=== PATIENT | female | born 1950 | race African-American/Black ===

== ENCOUNTER 2016-09-26 22:30 | Emergency (ER) | payer OTHER ==
[~2016-09-26] VITALS: Ht 165.1 cm; Wt 64.0 kg
[~2016-09-26 22:30] MED LIST: AMLO10TA80 PO; ATOR40TA70 PO; CLOP75TA2 PO; GLIP5TAB12 PO; METF10002 PO; METO25TA6 PO; TOLT4CAP PO
[2016-09-27 01:27] LABS: BASOPHILS % 1.3 % (0.0-2.0); EOSINOPHILS % 2.6 % (0.0-5.0); HEMATOCRIT. 31.5 % (36.0-48.0); HEMOGLOBIN. 10.4 g/dL (12.0-16.0); LYMPHOCYTES % 29.7 % (20.0-50.0); MEAN CORPUSCULAR HEMOGLOBIN 29.4 pg (28.0-32.0); MEAN CORPUSCULAR HGB CONC 32.9 g/dL (31.0-37.0); MEAN CORPUSCULAR VOLUME 89.3 fL (81.0-99.0); MEAN PLATELET VOLUME 9.6 fl (7.4-10.4); MONOCYTES % 9.1 % (2.0-8.0); NEUTROPHILS % 57.3 % (40.0-76.0); PLATELET 241 x1000/uL (130-400); RED BLOOD CELL COUNT 3.53 mill/uL (4.2-5.4); RED CELL DISTRIBUTION WIDTH 13.8 % (11.6-14.6); WHITE BLOOD COUNT 6.3 x1000/uL (4.5-11.0)
[2016-09-27 01:34] LABS: CHLORIDE 108 mEq/L (98-107); INDEX HEMOLYSI 1 (1-3); INDEX ICTERIC 1 (1-4); INDEX LIPEMIC 1 (1-3)
[2016-09-27 01:54] LABS: ACETAMINOPHEN < 2 ug/mL (10-30); ALANINE AMINOTRANSFERASE 13 IU/L (13-61); ALBUMIN 3.5 g/dL (3.4-5.0); ANION GAP 11; CALCIUM 8.7 mg/dL (8.5-10.1); CARBON DIOXIDE 27 mEq/L (21-32); ETHANOL BLOOD < 10 mg/dL; UREA NITROGEN BLOOD 36 mg/dL (7-21); eGFR 50 mL/min (>60)
[2016-09-27] MEDS ORDERED: SODIUM CHLORIDE 0.9% 1,000 ML IV ONE (02:00)
[2016-09-27 09:55] LABS: CLARITY URINE CLEAR (CLEAR); COLOR URINE YELLOW (YELLOW); GLUCOSE URINE NEGATIVE (NEGATIVE); KETONES URINE TRACE (NEGATIVE); LEUKOCYTE ESTERASE URINE NEGATIVE (NEGATIVE); NITRITE URINE NEGATIVE (NEGATIVE); OCCULT BLOOD URINE NEGATIVE (NEGATIVE); PROTEIN URINE 1+ (NEGATIVE); SPECIFIC GRAVITY URINE 1.018 (1.005-1.030)
[2016-09-27 10:12] LABS: BACTERIA URINE NONE SEEN; RBC URINE NONE SEEN /hpf (0-2); SQUAMOUS EPITHELIAL CELL URINE FEW /lpf (RARE/1+); WBC URINE 0-2 /hpf (0-2)
[2016-09-27 10:14] LABS: *AMPHETAMINES SCREEN URINE NEGATIVE (NEGATIVE); *BARBITURATES SCREEN URINE NEGATIVE (NEGATIVE); *BENZODIAZEPINES SCREEN URINE PRESUMTIVE POSITIVE (NEGATIVE); *COCAINE SCREEN URINE NEGATIVE (NEGATIVE); CANNABINOID URINE SCREEN NEGATIVE (NEGATIVE); ECSTASY MDMA SCREEN URINE NEGATIVE (NEGATIVE); METHADONE URINE SCREEN NEGATIVE (NEGATIVE); OPIATES URINE SCREEN PRESUMTIVE POSITIVE (NEGATIVE); PHENCYCLIDINE URINE SCREEN NEGATIVE (NEGATIVE)
[2016-09-27] MEDS ORDERED: LORAZEPAM 2MG/ML CPJ IV ONE (14:30)
[2016-09-27] MEDS ORDERED: LORAZEPAM 2MG/ML CPJ ONE (14:32)
[2016-09-28] MEDS ORDERED: LORAZEPAM 2MG/ML CPJ IV PRN (09:30)
[2016-09-28 12:30] VITALS: BP 151/103
== END 2016-09-28 16:10 | disposition home or self-care (01) ==
LOC: ER 22:30
DX: G30.9 Alzheimer's disease, unspecified (principal); F02.80 Dementia in other diseases classified elsewhere, unspecified severity, without behavioral disturbance, psychotic disturbance, mood disturbance, and anxiety; I10 Essential (primary) hypertension; E11.9 Type 2 diabetes mellitus without complications; F11.10 Opioid abuse, uncomplicated; F13.10 Sedative, hypnotic or anxiolytic abuse, uncomplicated; Z98.84 Bariatric surgery status; Z79.899 Other long term (current) drug therapy
CPT/HCPCS: 36415; 70450; 80053; 80305; 80307; 80329; 81001; 84443; 85025; 96361; 96374; 96376; 99285; G0482; J2060; J7030; Z7610

== ENCOUNTER 2017-04-01 19:28 | Inpatient (IN) | payer MEDICAID, OTHER ==
[~2017-04-01] VITALS: Ht 160 cm; Wt 55.3 kg
[~2017-04-01 19:28] MED LIST changes: +ALPR1TAB2 PO; +CLOP75TA16 PO; -CLOP75TA2 PO; +DONE5TAB33 PO
[2017-04-01 21:54] LABS: BASOPHILS % 0.9 % (0.0-2.0); EOSINOPHILS % 1.8 % (0.0-5.0); HEMOGLOBIN. 9.4 g/dL (12.0-16.0); LYMPHOCYTES % 35.9 % (20.0-50.0); MEAN CORPUSCULAR VOLUME 83.4 fL (81.0-99.0); MEAN PLATELET VOLUME 9.4 fl (7.4-10.4); MONOCYTES % 10.1 % (2.0-8.0); NEUTROPHILS % 51.3 % (40.0-76.0); PLATELET 179 x1000/uL (130-400); RED BLOOD CELL COUNT 3.36 mill/uL (4.2-5.4); RED CELL DISTRIBUTION WIDTH 15.7 % (11.6-14.6)
[2017-04-02] MEDS ORDERED: DOCUSATE SODIUM 100MG CAPSULE PO PRN (09:30)
[2017-04-02] MEDS ORDERED: ONDANSETRON HCL 4MG/2ML VIAL IV PRN (09:30)
[2017-04-02] MEDS ORDERED: CLONIDINE 0.1MG TABLET PO PRN (09:30)
[2017-04-02] MEDS ORDERED: DEXTROSE 50% WATER 50ML SYRINGE IV PRN (11:00)
[2017-04-02 11:31] VITALS: BP 137/74
[2017-04-02] MEDS ORDERED: POTASSIUM CHLORIDE 20MEQ TABLET SR PO NR (11:45)
[2017-04-02] MEDS: BLOOD SUGAR DIAGNOSTIC STRIP TEST SCH ×3 (12:10→21:00)
[2017-04-02] MEDS: MULTIVITAMINS,THER W-MINERALS TABLET PO SCH (12:47)
[2017-04-02] MEDS: INSULIN LISPRO 100 UNITS/ML SUBCUT SCH ×3 (13:28→21:00)
[2017-04-02] MEDS: ALPRAZOLAM 0.5 MG TABLET PO SCH (14:36)
[2017-04-02] MEDS: DEXT 5%/0.45% NACL 1000ML 1,000 ML IV SCH (16:46)
[2017-04-02 20:00] VITALS: BP 122/79
[2017-04-02] MEDS: ACETAMINOPHEN 325MG TABLET PO PRN (20:01)
[2017-04-02] MEDS: LORAZEPAM 2MG/ML CPJ IV PRN (20:08)
[2017-04-03] MEDS: ALPRAZOLAM 0.5 MG TABLET PO SCH ×4 (02:00→13:24)
[2017-04-03 04:00] VITALS: BP 117/65
[2017-04-03] MEDS: DEXT 5%/0.45% NACL 1000ML 1,000 ML IV SCH (07:04)
[2017-04-03] MEDS: ACETAMINOPHEN 325MG TABLET PO PRN (07:07)
[2017-04-03] MEDS: BLOOD SUGAR DIAGNOSTIC STRIP TEST SCH ×2 (07:07→11:37)
[2017-04-03] MEDS: INSULIN LISPRO 100 UNITS/ML SUBCUT SCH ×2 (07:08→13:28)
[2017-04-03 07:38] LABS: EOSINOPHILS % 3.4 % (0.0-5.0); HEMATOCRIT. 26.3 % (36.0-48.0); HEMOGLOBIN. 8.8 g/dL (12.0-16.0); LYMPHOCYTES % 36.9 % (20.0-50.0); MEAN CORPUSCULAR HEMOGLOBIN 28.4 pg (28.0-32.0); MEAN CORPUSCULAR VOLUME 84.3 fL (81.0-99.0); MEAN PLATELET VOLUME 9.3 fl (7.4-10.4); MONOCYTES % 11.6 % (2.0-8.0); NEUTROPHILS % 47.1 % (40.0-76.0); PLATELET 195 x1000/uL (130-400); RED BLOOD CELL COUNT 3.12 mill/uL (4.2-5.4)
[2017-04-03 08:00] VITALS: BP 106/72
[2017-04-03] MEDS: MULTIVITAMINS,THER W-MINERALS TABLET PO SCH (08:55)
[2017-04-03] MEDS: LORAZEPAM 2MG/ML CPJ IV PRN (08:56)
[2017-04-03] MEDS ORDERED: AMLODIPINE 10MG TABLET PO SCH (09:00)
[2017-04-03] MEDS ORDERED: ASPIRIN 81MG EC TABLET PO SCH (09:00)
[2017-04-03] MEDS ORDERED: FOLIC ACID 1MG TABLET PO SCH (09:00)
[2017-04-03 09:12] LABS: CARBON DIOXIDE 25 mEq/L (21-32); CHLORIDE 101 mEq/L (98-107)
[2017-04-03 12:00] VITALS: BP 117/79
[2017-04-03 15:39] VITALS: BP 117/79
== END 2017-04-03 16:40 | disposition home or self-care (01) | DRG 52 ==
LOC: ER 19:30 → 8WST 04-02 01:13 → CANRESERV 04-02 07:07 → ENRESERV 04-02 07:07
PROVIDERS: ADMIT Hospitalist; ATTEND Hospitalist
DX: G92 Toxic encephalopathy (principal); E43 Unspecified severe protein-calorie malnutrition; N17.9 Acute kidney failure, unspecified; F03.90 Unspecified dementia, unspecified severity, without behavioral disturbance, psychotic disturbance, mood disturbance, and anxiety; E11.9 Type 2 diabetes mellitus without complications; I25.10 Atherosclerotic heart disease of native coronary artery without angina pectoris; E87.6 Hypokalemia; E87.1 Hypo-osmolality and hyponatremia; Z98.84 Bariatric surgery status; Z79.84 Long term (current) use of oral hypoglycemic drugs; Z79.899 Other long term (current) drug therapy; Z72.89 Other problems related to lifestyle
CPT/HCPCS: 36415; 71010; 80048; 80053; 82962; 84443; 84484; 85025; 87040; 87086; 93970; 99285; J1815; J2060

== ENCOUNTER 2017-05-07 08:22 | Inpatient (IN) | payer MEDICAID, OTHER ==
[~2017-05-07] VITALS: Ht 157.5 cm; Wt 66.7 kg
[2017-05-07 09:24] LABS: BASOPHILS % 0.2 % (0.0-2.0); HEMATOCRIT. 30.3 % (36.0-48.0); HEMOGLOBIN. 10.2 g/dL (12.0-16.0); LYMPHOCYTES % 15.9 % (20.0-50.0); MEAN CORPUSCULAR HEMOGLOBIN 27.9 pg (28.0-32.0); MEAN CORPUSCULAR VOLUME 83.1 fL (81.0-99.0); MEAN PLATELET VOLUME 8.9 fl (7.4-10.4); NEUTROPHILS % 77.9 % (40.0-76.0); PLATELET 339 x1000/uL (130-400); RED BLOOD CELL COUNT 3.65 mill/uL (4.2-5.4); RED CELL DISTRIBUTION WIDTH 15.1 % (11.6-14.6)
[2017-05-07 09:30] LABS: CARBON DIOXIDE 26 mEq/L (21-32); CHLORIDE 79 mEq/L (98-107); ETHANOL BLOOD < 10 mg/dL
[2017-05-07] MEDS ORDERED: SODIUM CHLORIDE 0.9% 1,000 ML IV ONE (10:00)
[2017-05-07] MEDS ORDERED: SODIUM CHLORIDE 0.9% 250 ML IV ONE (10:00)
[2017-05-07 11:09] LABS: *AMPHETAMINES SCREEN URINE NEGATIVE (NEGATIVE); *BARBITURATES SCREEN URINE NEGATIVE (NEGATIVE); *BENZODIAZEPINES SCREEN URINE PRESUMTIVE POSITIVE (NEGATIVE); *COCAINE SCREEN URINE NEGATIVE (NEGATIVE); CANNABINOID URINE SCREEN NEGATIVE (NEGATIVE); METHADONE URINE SCREEN NEGATIVE (NEGATIVE); OPIATES URINE SCREEN NEGATIVE (NEGATIVE); PHENCYCLIDINE URINE SCREEN NEGATIVE (NEGATIVE)
[2017-05-07 14:40] VITALS: BP 165/86
[2017-05-07 15:30] VITALS: BP 165/86
[2017-05-07] MEDS ORDERED: ONDANSETRON HCL 4MG/2ML VIAL IV PRN (15:30)
[2017-05-07] MEDS ORDERED: GUAIFENESIN 200MG/10ML SUGAR FREE UDC PO PRN (15:30)
[2017-05-07] MEDS ORDERED: IPRATROPIUM/ALBUTEROL 0.5-3(2.5)MG/3ML NEB INH PRN (15:30)
[2017-05-07] MEDS ORDERED: ACETAMINOPHEN 325MG TABLET PO PRN (15:30)
[2017-05-07] MEDS ORDERED: NITROGLYCERIN 0.4MG TABLET SL SL PRN (15:30)
[2017-05-07] MEDS ORDERED: DOCUSATE SODIUM 100MG CAPSULE PO PRN (15:30)
[2017-05-07] MEDS ORDERED: MAGNESIUM/ALUMINUM HYDROXIDE/SIMETHICONE 30ML UDC PO PRN (15:30)
[2017-05-07] MEDS: FAMOTIDINE 20MG TABLET PO SCH (16:00)
[2017-05-07] MEDS ORDERED: NA PHOS,M-B/NA PHOS,DI-BA ENEMA 118ML PR PRN (16:00)
[2017-05-07] MEDS ORDERED: TRAMADOL 50MG TABLET PO PRN (16:00)
[2017-05-07 16:01] LABS: T4 FREE 1.48 ng/dL (0.76-1.46)
[2017-05-07] MEDS ORDERED: NIFE-1 PO (16:08)
[2017-05-07] MEDS ORDERED: HYDR-523 PO (16:08)
[2017-05-07] MEDS ORDERED: ASPI-1159 PO (16:08)
[2017-05-07] MEDS: SODIUM CHLORIDE 0.9% 1,000 ML IV SCH ×2 (16:39→23:06)
[2017-05-07] MEDS: ENOXAPARIN 40MG/0.4ML SYR SUBCUT SCH (16:44)
[2017-05-07 17:23] LABS: CHLORIDE 82 mEq/L (98-107)
[2017-05-07 17:32] LABS: CARBON DIOXIDE 25 mEq/L (21-32)
[2017-05-07] MEDS ORDERED: DEXTROSE 50% WATER 50ML SYRINGE IV PRN (18:45)
[2017-05-07] MEDS ORDERED: POTASSIUM CHLORIDE 20MEQ/PACKET PO NR (18:45)
[2017-05-07 20:00] VITALS: BP 172/80
[2017-05-07] MEDS: ASCORBIC ACID 500 MG TABLET PO SCH (21:00)
[2017-05-07] MEDS: ATORVASTATIN CALCIUM 20MG TABLET PO SCH ×2 (21:00→23:07)
[2017-05-07] MEDS: BLOOD SUGAR DIAGNOSTIC STRIP TEST SCH (22:00)
[2017-05-07 23:00] LABS: CREATINE KINASE 579 IU/L (26-192); CREATINE KINASE MB FRACTION 4.4 ng/mL (0.5-3.6); TROPONIN I < 0.02 ng/mL (0.00-0.04)
[2017-05-07] MEDS: INSULIN LISPRO 100 UNITS/ML SUBCUT SCH (23:05)
[2017-05-08] VITALS: BP 129/79
[2017-05-08 04:00] VITALS: BP 142/77
[2017-05-08 07:10] LABS: CHLORIDE 82 mEq/L (98-107)
[2017-05-08 07:21] LABS: CARBON DIOXIDE 22 mEq/L (21-32); CREATINE KINASE 553 IU/L (26-192); CREATINE KINASE MB FRACTION 3.8 ng/mL (0.5-3.6); TROPONIN I < 0.02 ng/mL (0.00-0.04)
[2017-05-08] MEDS: INSULIN LISPRO 100 UNITS/ML SUBCUT SCH ×4 (07:50→23:17)
[2017-05-08] MEDS ORDERED: PANTOPRAZOLE SODIUM 40 MG/VIAL IV SCH (09:00)
[2017-05-08] MEDS: POTASSIUM CHLORIDE 20MEQ TABLET SR PO SCH (09:00)
[2017-05-08] MEDS: ASCORBIC ACID 500 MG TABLET PO SCH ×2 (09:00→23:00)
[2017-05-08] MEDS: FAMOTIDINE 20MG TABLET PO SCH (09:00)
[2017-05-08] MEDS: ASPIRIN 325MG EC TABLET PO SCH (09:00)
[2017-05-08] MEDS ORDERED: KCL 20MEQ/100ML PREMIX 100 ML IV NR (11:00)
[2017-05-08] MEDS: SODIUM CHLORIDE 0.9% 1,000 ML IV SCH ×2 (11:17→17:21)
[2017-05-08] MEDS: BLOOD SUGAR DIAGNOSTIC STRIP TEST SCH ×3 (11:46→21:00)
[2017-05-08 12:00] VITALS: BP 171/86
[2017-05-08] MEDS: CLONIDINE 0.1MG TABLET PO PRN ×2 (12:24→23:00)
[2017-05-08 13:35] VITALS: BP 158/78
[2017-05-08] MEDS: SODIUM CHLORIDE 1000MG TABLET PO SCH ×2 (13:37→17:28)
[2017-05-08 16:00] VITALS: BP 143/79
[2017-05-08] MEDS: ENOXAPARIN 40MG/0.4ML SYR SUBCUT SCH (17:28)
[2017-05-08 20:00] VITALS: BP 166/93
[2017-05-08] MEDS: ATORVASTATIN CALCIUM 20MG TABLET PO SCH (23:00)
[2017-05-09] MEDS: ZOLPIDEM TARTRATE 5MG TABLET PO PRN ×2 (01:15→21:46)
[2017-05-09] MEDS: SODIUM CHLORIDE 0.9% 1,000 ML IV SCH ×3 (01:21→17:21)
[2017-05-09] MEDS: BLOOD SUGAR DIAGNOSTIC STRIP TEST SCH ×4 (07:20→20:19)
[2017-05-09] MEDS: INSULIN LISPRO 100 UNITS/ML SUBCUT SCH ×4 (07:50→21:46)
[2017-05-09 08:00] VITALS: BP 155/80
[2017-05-09] MEDS: POTASSIUM CHLORIDE 20MEQ TABLET SR PO SCH (09:49)
[2017-05-09] MEDS: ASCORBIC ACID 500 MG TABLET PO SCH ×2 (09:50→20:12)
[2017-05-09] MEDS: SODIUM CHLORIDE 1000MG TABLET PO SCH ×3 (09:50→18:05)
[2017-05-09] MEDS: ASPIRIN 325MG EC TABLET PO SCH (09:50)
[2017-05-09] MEDS: FAMOTIDINE 20MG TABLET PO SCH (09:50)
[2017-05-09 12:00] VITALS: BP 138/88
[2017-05-09 16:00] VITALS: BP 160/95
[2017-05-09 16:27] LABS: CARBON DIOXIDE 24 mEq/L (21-32); CHLORIDE 89 mEq/L (98-107)
[2017-05-09] MEDS: ENOXAPARIN 40MG/0.4ML SYR SUBCUT SCH (18:09)
[2017-05-09 20:00] VITALS: BP 180/83
[2017-05-09] MEDS: LISINOPRIL 20MG TABLET PO SCH (20:12)
[2017-05-09] MEDS: ATORVASTATIN CALCIUM 20MG TABLET PO SCH (20:12)
[2017-05-10] MEDS: BLOOD SUGAR DIAGNOSTIC STRIP TEST SCH (06:40)
[2017-05-10] MEDS: INSULIN LISPRO 100 UNITS/ML SUBCUT SCH (07:50)
[2017-05-10 08:00] VITALS: BP 196/94
[2017-05-10] MEDS: ASCORBIC ACID 500 MG TABLET PO SCH (08:22)
[2017-05-10] MEDS: ASPIRIN 325MG EC TABLET PO SCH (08:22)
[2017-05-10] MEDS: POTASSIUM CHLORIDE 20MEQ TABLET SR PO SCH (08:22)
[2017-05-10] MEDS: LISINOPRIL 20MG TABLET PO SCH (08:23)
[2017-05-10] MEDS: FAMOTIDINE 20MG TABLET PO SCH (08:24)
[2017-05-10] MEDS: SODIUM CHLORIDE 1000MG TABLET PO SCH (08:25)
[2017-05-10] MEDS: CLONIDINE 0.1MG TABLET PO PRN (08:26)
[2017-05-10] MEDS: SODIUM CHLORIDE 0.9% 1,000 ML IV SCH (09:10)
[2017-05-10 10:22] LABS: CARBON DIOXIDE 23 mEq/L (21-32); CHLORIDE 95 mEq/L (98-107)
[2017-05-10 11:59] VITALS: BP 196/96
[2017-05-10 12:00] VITALS: BP 118/69
== END 2017-05-10 12:30 | disposition home or self-care (01) | DRG 52 ==
LOC: ER 08:30 → 6EST 11:51 → ENRESERV 13:44 → 6EST 20:12
PROVIDERS: ADMIT Internal Medicine; ATTEND Internal Medicine
DX: G92 Toxic encephalopathy (principal); E87.0 Hyperosmolality and hypernatremia; F03.90 Unspecified dementia, unspecified severity, without behavioral disturbance, psychotic disturbance, mood disturbance, and anxiety; I50.9 Heart failure, unspecified; I11.0 Hypertensive heart disease with heart failure; E11.9 Type 2 diabetes mellitus without complications; D63.8 Anemia in other chronic diseases classified elsewhere; E87.1 Hypo-osmolality and hyponatremia; E78.00 Pure hypercholesterolemia, unspecified; Z98.84 Bariatric surgery status; Z79.4 Long term (current) use of insulin
CPT/HCPCS: 36415; 70450; 80048; 80053; 80061; 80305; 82550; 82553; 82962; 83036; 83880; 84300; 84439; 84443; 84484; 85025; 92610; 93970; 96360; 97162; 99285; C1893; G0482; J1650; J1815; J3480; J7030; J7050

== ENCOUNTER 2017-07-06 12:44 | Inpatient (IN) | payer MEDICARE, MEDICAID ==
[~2017-07-06] VITALS: Ht 160 cm; Wt 50.4 kg
[~2017-07-06 12:44] MED LIST changes: +ASPI-1159 PO; +HYDR-523 PO; +NIFE-1 PO; -TOLT4CAP PO
[2017-07-06] MEDS ORDERED: SODIUM CHLORIDE 0.9% 500 ML IV ONE (14:37)
[2017-07-06 15:30] LABS: BASOPHILS % 0.7 % (0.0-2.0); HEMATOCRIT. 32.2 % (36.0-48.0); HEMOGLOBIN. 10.5 g/dL (12.0-16.0); LYMPHOCYTES % 33.1 % (20.0-50.0); MEAN CORPUSCULAR HEMOGLOBIN 28.1 pg (28.0-32.0); MEAN CORPUSCULAR VOLUME 85.8 fL (81.0-99.0); MEAN PLATELET VOLUME 9.6 fl (7.4-10.4); NEUTROPHILS % 56.2 % (40.0-76.0); PLATELET 244 x1000/uL (130-400); RED BLOOD CELL COUNT 3.75 mill/uL (4.2-5.4); RED CELL DISTRIBUTION WIDTH 16.3 % (11.6-14.6)
[2017-07-06 15:43] LABS: PROTHROMBIN TIME 10.4 sec (9.4-11.6)
[2017-07-06 15:51] LABS: CARBON DIOXIDE 23 mEq/L (21-32); CHLORIDE 104 mEq/L (98-107); TROPONIN I < 0.02 ng/mL (0.00-0.04)
[2017-07-06] MEDS ORDERED: METOPROLOL TARTRATE 25MG TABLET PO ONE (18:15)
[2017-07-06] MEDS ORDERED: NIFEDIPINE XL 30MG TAB PO ONE (18:15)
[2017-07-06] MEDS ORDERED: ONDANSETRON HCL 4MG/2ML VIAL IV PRN (18:30)
[2017-07-06] MEDS ORDERED: CLONIDINE 0.1MG TABLET PO PRN (18:30)
[2017-07-06] MEDS ORDERED: ACETAMINOPHEN 325MG TABLET PO PRN (18:30)
[2017-07-06] MEDS ORDERED: HYDROMORPHONE HCL/PF 2MG/ML CPJ IV PRN (20:00)
[2017-07-06] MEDS ORDERED: LORAZEPAM 2MG/ML CPJ IV ONE (21:45)
[2017-07-06 23:38] VITALS: BP 158/92
[2017-07-07] VITALS: BP 138/86
[2017-07-07] MEDS ORDERED: LORAZEPAM 2MG/ML CPJ IV NR (00:15)
[2017-07-07] MEDS ORDERED: DEXTROSE 50% WATER 50ML SYRINGE IV PRN (00:30)
[2017-07-07] MEDS: DEXT 5%/0.45% NACL 1000ML 1,000 ML IV SCH ×2 (00:35→11:25)
[2017-07-07 04:05] VITALS: BP 140/80
[2017-07-07 06:36] LABS: BASOPHILS % 0.6 % (0.0-2.0); EOSINOPHILS % 1.9 % (0.0-5.0); HEMATOCRIT. 28.9 % (36.0-48.0); HEMOGLOBIN. 9.5 g/dL (12.0-16.0); LYMPHOCYTES % 33.3 % (20.0-50.0); MEAN CORPUSCULAR HEMOGLOBIN 27.9 pg (28.0-32.0); MEAN CORPUSCULAR VOLUME 84.6 fL (81.0-99.0); MEAN PLATELET VOLUME 9.3 fl (7.4-10.4); MONOCYTES % 9.2 % (2.0-8.0); PLATELET 243 x1000/uL (130-400); RED BLOOD CELL COUNT 3.41 mill/uL (4.2-5.4); RED CELL DISTRIBUTION WIDTH 16.2 % (11.6-14.6)
[2017-07-07] MEDS: BLOOD SUGAR DIAGNOSTIC STRIP TEST SCH ×4 (06:41→21:00)
[2017-07-07 07:43] LABS: CARBON DIOXIDE 25 mEq/L (21-32); CHLORIDE 105 mEq/L (98-107)
[2017-07-07] MEDS: INSULIN LISPRO 100 UNITS/ML SUBCUT SCH ×4 (07:50→21:05)
[2017-07-07 07:54] VITALS: BP 140/98
[2017-07-07 07:55] LABS: HDL CHOLESTEROL 76 mg/dL (40-59); LDL CHOLESTEROL 133 mg/dL (5-100)
[2017-07-07 08:15] LABS: CLARITY URINE CLEAR (CLEAR); COLOR URINE YELLOW (YELLOW); KETONES URINE NEGATIVE (NEGATIVE); LEUKOCYTE ESTERASE URINE TRACE (NEGATIVE); NITRITE URINE NEGATIVE (NEGATIVE); OCCULT BLOOD URINE TRACE (NEGATIVE); PH URINE 5.5 (4.5-8.0); PROTEIN URINE NEGATIVE (NEGATIVE); UROBILINOGEN URINE 0.2 E.U./dL (0.2-1.0)
[2017-07-07] MEDS: QUETIAPINE FUMARATE 25MG TABLET PO SCH ×2 (11:22→21:03)
[2017-07-07] MEDS: AMLODIPINE 5MG TABLET PO SCH ×2 (11:44→21:02)
[2017-07-07] MEDS: METOPROLOL TARTRATE 25MG TABLET PO SCH ×2 (11:44→21:03)
[2017-07-07 12:00] VITALS: BP 144/92
[2017-07-07 16:00] VITALS: BP 129/91
[2017-07-07] MEDS ORDERED: POTASSIUM CHLORIDE 20MEQ TABLET SR PO NR (16:30)
[2017-07-07 20:00] VITALS: BP 141/87
[2017-07-07] MEDS ORDERED: ATORVASTATIN CALCIUM 40MG TABLET PO SCH (21:00)
[2017-07-07] MEDS ORDERED: METOPROLOL TARTRATE 25MG TABLET PO SCH (21:00)
[2017-07-07] MEDS ORDERED: QUETIAPINE FUMARATE 25MG TABLET PO SCH (21:00)
[2017-07-07] MEDS: ATORVASTATIN CALCIUM 20MG TABLET PO SCH (21:02)
[2017-07-07] MEDS: DONEPEZIL HCL 5MG TABLET PO SCH (21:02)
[2017-07-07] MEDS: ALPRAZOLAM 0.5 MG TABLET PO SCH (21:03)
[2017-07-08] VITALS: BP 139/82
[2017-07-08] MEDS: DEXT 5%/0.45% NACL 1000ML 1,000 ML IV SCH ×3 (00:40→20:06)
[2017-07-08 04:00] VITALS: BP 131/82
[2017-07-08] MEDS: ALPRAZOLAM 0.5 MG TABLET PO SCH ×3 (06:00→22:00)
[2017-07-08] MEDS: BLOOD SUGAR DIAGNOSTIC STRIP TEST SCH ×4 (07:20→20:06)
[2017-07-08 07:39] LABS: BASOPHILS % 0.6 % (0.0-2.0); HEMATOCRIT. 30.5 % (36.0-48.0); HEMOGLOBIN. 10.3 g/dL (12.0-16.0); LYMPHOCYTES % 31.1 % (20.0-50.0); MEAN CORPUSCULAR HEMOGLOBIN 28.7 pg (28.0-32.0); MEAN PLATELET VOLUME 9.2 fl (7.4-10.4); MONOCYTES % 10.7 % (2.0-8.0); NEUTROPHILS % 53.6 % (40.0-76.0); PLATELET 275 x1000/uL (130-400); RED BLOOD CELL COUNT 3.59 mill/uL (4.2-5.4); RED CELL DISTRIBUTION WIDTH 16.5 % (11.6-14.6)
[2017-07-08] MEDS: INSULIN LISPRO 100 UNITS/ML SUBCUT SCH ×4 (07:50→20:09)
[2017-07-08 07:58] LABS: CHLORIDE 101 mEq/L (98-107)
[2017-07-08 08:09] LABS: CARBON DIOXIDE 28 mEq/L (21-32); PHOSPHORUS 3.4 mg/dL (2.5-4.9)
[2017-07-08 08:30] VITALS: BP 151/107
[2017-07-08] MEDS ORDERED: NIFEDIPINE PO SCH (09:00)
[2017-07-08] MEDS ORDERED: NIFEDIPINE XL 30MG TAB PO SCH (09:00)
[2017-07-08] MEDS ORDERED: AMLODIPINE 10MG TABLET PO SCH (09:00)
[2017-07-08] MEDS: METFORMIN HCL 500MG TABLET PO SCH ×2 (09:51→18:46)
[2017-07-08] MEDS: METOPROLOL TARTRATE 25MG TABLET PO SCH ×2 (09:55→20:05)
[2017-07-08] MEDS: ASPIRIN 81MG EC TABLET PO SCH (09:55)
[2017-07-08] MEDS: AMLODIPINE 5MG TABLET PO SCH ×2 (09:56→20:05)
[2017-07-08] MEDS: GLIPIZIDE 5MG TABLET PO SCH (09:56)
[2017-07-08] MEDS: CLOPIDOGREL 75MG TABLET PO SCH (09:56)
[2017-07-08] MEDS ORDERED: POTASSIUM CHLORIDE 20MEQ TABLET SR PO NR (10:15)
[2017-07-08] MEDS ORDERED: MAGNESIUM 2 G PREMIX 50 ML IV SCH (11:00)
[2017-07-08 11:09] VITALS: BP 150/98
[2017-07-08] MEDS: QUETIAPINE FUMARATE 25MG TABLET PO SCH ×2 (11:40→20:05)
[2017-07-08 16:40] VITALS: BP 153/99
[2017-07-08 20:00] VITALS: BP 172/103
[2017-07-08] MEDS: DONEPEZIL HCL 5MG TABLET PO SCH (20:04)
[2017-07-08] MEDS: ATORVASTATIN CALCIUM 20MG TABLET PO SCH (20:04)
[2017-07-09] VITALS: BP 146/84
[2017-07-09 04:00] VITALS: BP 150/99
[2017-07-09] MEDS: ALPRAZOLAM 0.5 MG TABLET PO SCH ×2 (06:31→13:32)
[2017-07-09] MEDS: BLOOD SUGAR DIAGNOSTIC STRIP TEST SCH ×3 (06:31→17:00)
[2017-07-09] MEDS: INSULIN LISPRO 100 UNITS/ML SUBCUT SCH ×3 (07:50→17:00)
[2017-07-09 07:54] LABS: BASOPHILS % 0.8 % (0.0-2.0); EOSINOPHILS % 5.4 % (0.0-5.0); HEMOGLOBIN. 9.7 g/dL (12.0-16.0); MEAN CORPUSCULAR HEMOGLOBIN 28.6 pg (28.0-32.0); MEAN CORPUSCULAR VOLUME 85.7 fL (81.0-99.0); MONOCYTES % 9.5 % (2.0-8.0); NEUTROPHILS % 56.3 % (40.0-76.0); PLATELET 250 x1000/uL (130-400); RED BLOOD CELL COUNT 3.38 mill/uL (4.2-5.4); RED CELL DISTRIBUTION WIDTH 16.9 % (11.6-14.6)
[2017-07-09 08:05] VITALS: BP 156/96
[2017-07-09 08:52] LABS: CARBON DIOXIDE 25 mEq/L (21-32); CHLORIDE 105 mEq/L (98-107)
[2017-07-09 08:53] LABS: PHOSPHORUS 3.1 mg/dL (2.5-4.9)
[2017-07-09] MEDS: METFORMIN HCL 500MG TABLET PO SCH ×2 (09:19→17:00)
[2017-07-09] MEDS: ASPIRIN 81MG EC TABLET PO SCH (09:19)
[2017-07-09] MEDS: CLOPIDOGREL 75MG TABLET PO SCH (09:19)
[2017-07-09] MEDS: AMLODIPINE 5MG TABLET PO SCH (09:20)
[2017-07-09] MEDS: METOPROLOL TARTRATE 25MG TABLET PO SCH (09:20)
[2017-07-09] MEDS: QUETIAPINE FUMARATE 25MG TABLET PO SCH (09:20)
[2017-07-09] MEDS: GLIPIZIDE 5MG TABLET PO SCH (09:20)
[2017-07-09] MEDS: DEXT 5%/0.45% NACL 1000ML 1,000 ML IV SCH (13:33)
[2017-07-09 16:22] VITALS: BP 144/84
[2017-07-09 17:17] VITALS: BP 144/84
[2017-07-09 19:50] VITALS: BP 145/88
== END 2017-07-09 19:57 | disposition home health service (06) | DRG 64 ==
LOC: CANRESERV 15:25 → ENRESERV 15:25 → ER 15:47 → 6WST 18:29 → EDBEDREQ 18:30 → EDBEDREQTM 18:30 → ENRESERV 19:38
PROVIDERS: ADMIT Internal Medicine Nephrology; ATTEND Internal Medicine Nephrology
DX: I63.9 Cerebral infarction, unspecified (principal); G92 Toxic encephalopathy; F03.91 Unspecified dementia, unspecified severity, with behavioral disturbance; I50.9 Heart failure, unspecified; I11.0 Hypertensive heart disease with heart failure; D64.9 Anemia, unspecified; E11.9 Type 2 diabetes mellitus without complications; E78.5 Hyperlipidemia, unspecified; E87.6 Hypokalemia; W10.8XXA Fall (on) (from) other stairs and steps, initial encounter; F41.9 Anxiety disorder, unspecified; S01.112A Laceration without foreign body of left eyelid and periocular area, initial encounter; Y93.89 Activity, other specified; Y92.89 Other specified places as the place of occurrence of the external cause; Y99.8 Other external cause status; Z98.84 Bariatric surgery status; Z79.84 Long term (current) use of oral hypoglycemic drugs; Z79.02 Long term (current) use of antithrombotics/antiplatelets; Z79.82 Long term (current) use of aspirin; Z79.899 Other long term (current) drug therapy
CPT/HCPCS: 36415; 70450; 70486; 70551; 71010; 72125; 72170; 73110; 80048; 80053; 80061; 81001; 82962; 83735; 84100; 84443; 84484; 85025; 85610; 87040; 87086; 93005; 93306; 93880; 96374; 97162; 97166; 99285; J1815; J2060; J2405; J3475; J7040; A4315

== ENCOUNTER 2017-10-01 12:56 | Emergency (ER) | payer MEDICARE, MEDICAID | END 2017-10-01 15:12 | disposition left against medical advice (07) | LOC: ER 12:56 | DX: M79.89 Other specified soft tissue disorders (principal); Z53.21 Procedure and treatment not carried out due to patient leaving prior to being seen by health care provider ==